=== PATIENT | female | born 1940 | race Hispanic/Latino ===

== ENCOUNTER 2017-04-28 20:04 | Inpatient (IN) | payer MEDICARE ==
[~2017-04-28] VITALS: Ht 157.5 cm; Wt 78.3 kg
[2017-04-28] MEDS ORDERED: ESMOLOL HCL 2500 MG/NACL 250 ML IV ONE (23:36)
[2017-04-28 23:45] VITALS: BP 107/73
[2017-04-29] VITALS (23 sets, daily range): BP systolic 96–153; BP diastolic 35–88
[2017-04-29] MEDS ORDERED: ACETAMINOPHEN 325 MG TAB PO PRN ×2 (01:30)
[2017-04-29] MEDS ORDERED: ONDANSETRON HCL 4 MG/2 ML VIAL IV PRN (01:30)
[2017-04-29 03:47] LABS: BASOPHILS % (AUTO) 0.4 % (0.0-5.0); EOSINOPHILS % (AUTO) 0.7 % (0.0-8.0); HEMATOCRIT 35.4 % (36-48); LYMPHOCYTES % (AUTO) 22.9 % (21.0-51.0); MEAN CORPUSCULAR HEMOGLOBIN 30.1 pg (27.0-33.0); MEAN CORPUSCULAR HGB CONC 34.1 g/dL (32.0-36.0); MEAN CORPUSCULAR VOLUME 88.5 fL (79-99); MONOCYTES % (AUTO) 10.4 % (3.0-13.0); NEUTROPHILS % (AUTO) 65.6 % (40.0-77.0); PLATELET COUNT (AUTO) 200 K/uL (130-400); RED CELL DISTRIBUTION WIDTH 13.3 % (11.0-15.5); WHITE BLOOD COUNT (AUTO) 5.5 K/uL (4.8-10.8)
[2017-04-29 03:58] LABS: INR 1.05 (0.85-1.15); PARTIAL THROMBOPLASTIN TIME 32.2 SEC (26.3-35.5)
[2017-04-29] MEDS: SODIUM CHLORIDE 0.9% 1000ML 1,000 ML IV SCH ×3 (04:08→22:21)
[2017-04-29 04:09] LABS: ALBUMIN 2.7 g/dL (3.5-5.0); BILIRUBIN,TOTAL 0.4 mg/dL (0.2-1.0); CREATININE 0.8 mg/dL (0.5-1.5); MAGNESIUM 1.7 mg/dL (1.80-2.40); PHOSPHORUS 3.4 mg/dL (2.5-4.9); POTASSIUM 3.6 mmol/L (3.5-5.1); TOTAL PROTEIN, SERUM 5.5 g/dL (6.0-8.3)
[2017-04-29] MEDS: INSULIN HUMULIN R 100 UNIT/ML 3ML SQ SCH ×4 (06:50→20:29)
[2017-04-29] MEDS ORDERED: LOSA100T29 PO (08:31)
[2017-04-29] MEDS ORDERED: INSLAN SQ (08:31)
[2017-04-29] MEDS ORDERED: FLUT16H NASAL (08:31)
[2017-04-29] MEDS ORDERED: ASPI-555 PO (08:31)
[2017-04-29] MEDS ORDERED: PANT40TA25 PO (08:31)
[2017-04-29] MEDS ORDERED: DICL2100G TP (08:31)
[2017-04-29] MEDS ORDERED: TRAZ-144 PO (08:31)
[2017-04-29] MEDS ORDERED: CARV6.25 PO (08:31)
[2017-04-29] MEDS ORDERED: FURO20TA6 PO (08:31)
[2017-04-29] MEDS ORDERED: TRAM50TA4 PO (08:31)
[2017-04-29] MEDS ORDERED: ESCI10TA54 PO (08:34)
[2017-04-29] MEDS ORDERED: PANTOPRAZOLE 40 MG/VIAL IVP SCH (09:00)
[2017-04-29] MEDS: ESMOLOL HCL 2500 MG/NACL 250 ML IV PRN ×3 (09:27→22:25)
[2017-04-29] MEDS ORDERED: VERAPAMIL HCL 80 MG TABLET PO ONE (11:30)
[2017-04-29] MEDS: APIXABAN 5 MG TABLET PO SCH ×2 (11:43→20:29)
[2017-04-29] MEDS: PANTOPRAZOLE SODIUM 40 MG TABLET.DR PO SCH (11:43)
[2017-04-29] MEDS: ALPRAZOLAM 0.25 MG TABLET PO PRN ×2 (12:03→22:18)
[2017-04-29] MEDS ORDERED: VERAPAMIL HCL 80 MG TABLET PO SCH (14:00)
[2017-04-29] MEDS: MAGNESIUM 2GM PREMIX 50ML 50 ML IV PRN (14:51)
[2017-04-29] MEDS: VERAPAMIL HCL 80 MG TABLET PO SCH (22:20)
[2017-04-29] MEDS ORDERED: ESMOLOL HCL 2500 MG/NACL 250 ML IV ONE (22:42)
[2017-04-30] VITALS (21 sets, daily range): BP systolic 106–151; BP diastolic 38–86
[2017-04-30] MEDS: ESMOLOL HCL 2500 MG/NACL 250 ML IV PRN ×2 (04:02→10:44)
[2017-04-30] MEDS: VERAPAMIL HCL 80 MG TABLET PO SCH (06:23)
[2017-04-30] MEDS: INSULIN HUMULIN R 100 UNIT/ML 3ML SQ SCH ×4 (06:29→21:00)
[2017-04-30] MEDS: PANTOPRAZOLE SODIUM 40 MG TABLET.DR PO SCH (09:40)
[2017-04-30] MEDS: APIXABAN 5 MG TABLET PO SCH ×2 (09:40→20:17)
[2017-04-30] MEDS: SODIUM CHLORIDE 0.9% 1000ML 1,000 ML IV SCH (09:40)
[2017-04-30] MEDS ORDERED: PROPOFOL 1000 MG/100 ML 100 ML IV ONE (11:51)
[2017-04-30] MEDS ORDERED: FENTANYL CITRATE PF 50 MCG/1 ML 5ML AMP IV ONE (11:52)
[2017-04-30] MEDS ORDERED: MIDAZOLAM HCL 1 MG/ML 2ML VIAL ONE (11:52)
[2017-04-30] MEDS: PROPAFENONE HCL 150 MG TABLET PO SCH ×2 (13:09→20:17)
[2017-04-30] MEDS: METOPROLOL TARTRATE 25 MG TAB PO SCH ×2 (13:10→20:17)
[2017-04-30] MEDS ORDERED: LOPERAMIDE HCL 1 MG/5 ML UNIT DOSE CUP PO SCH (15:00)
[2017-04-30] MEDS ORDERED: BISMUTH SUBSALICYLATE 262 MG/15 ML ML PO SCH (15:30)
[2017-05-01] MEDS ORDERED: ALPRAZOLAM 0.5 MG TABLET ONE ×3 (00:55→20:37)
[2017-05-01 03:43] VITALS: BP 128/55
[2017-05-01] MEDS: PROPAFENONE HCL 150 MG TABLET PO SCH ×3 (04:04→20:35)
[2017-05-01] MEDS: INSULIN HUMULIN R 100 UNIT/ML 3ML SQ SCH ×4 (06:28→21:00)
[2017-05-01] MEDS ORDERED: APIX5TAB PO (06:36)
[2017-05-01] MEDS ORDERED: METO25 PO (06:36)
[2017-05-01] MEDS ORDERED: PANT40TA PO (06:36)
[2017-05-01] MEDS ORDERED: PROP150T28 PO (06:36)
[2017-05-01 06:54] LABS: BASOPHILS % (AUTO) 0.6 % (0.0-5.0); EOSINOPHILS % (AUTO) 1.2 % (0.0-8.0); HEMATOCRIT 33.7 % (36-48); LYMPHOCYTES % (AUTO) 20.1 % (21.0-51.0); MEAN CORPUSCULAR HEMOGLOBIN 29.8 pg (27.0-33.0); MEAN CORPUSCULAR HGB CONC 33.5 g/dL (32.0-36.0); MEAN CORPUSCULAR VOLUME 88.9 fL (79-99); MONOCYTES % (AUTO) 8.3 % (3.0-13.0); NEUTROPHILS % (AUTO) 69.8 % (40.0-77.0); PLATELET COUNT (AUTO) 196 K/uL (130-400); RED BLOOD CELL COUNT(AUTO) 3.79 MIL/uL (4.00-5.50); RED CELL DISTRIBUTION WIDTH 13.8 % (11.0-15.5); WHITE BLOOD COUNT (AUTO) 5.9 K/uL (4.8-10.8)
[2017-05-01 07:05] LABS: CREATININE 0.8 mg/dL (0.5-1.5); POTASSIUM 3.6 mmol/L (3.5-5.1)
[2017-05-01 07:09] VITALS: BP 171/78
[2017-05-01] MEDS: METOPROLOL TARTRATE 25 MG TAB PO SCH ×2 (07:41→20:35)
[2017-05-01] MEDS: PANTOPRAZOLE SODIUM 40 MG TABLET.DR PO SCH (07:41)
[2017-05-01] MEDS: APIXABAN 5 MG TABLET PO SCH ×2 (07:41→20:35)
[2017-05-01] MEDS ORDERED: POTASSIUM CHLORIDE 10% ELIXIR 20 MEQ/15 ML UDCUP PO PRN (08:15)
[2017-05-01] MEDS: POTASSIUM CHLORIDE 20 MEQ ERTAB PO PRN ×2 (10:18→11:51)
[2017-05-01 10:25] LABS: OCCULT BLOOD STOOL SINGLE ONLY POSITIVE (NEGATIVE)
[2017-05-01] MEDS: ALPRAZOLAM 0.25 MG TABLET PO PRN ×2 (10:28→16:02)
[2017-05-01 11:21] VITALS: BP 160/82
[2017-05-01] MEDS ORDERED: FUROSEMIDE 20 MG TABLET PO SCH (11:30)
[2017-05-01] MEDS: CITALOPRAM 20 MG TABLET PO SCH (11:50)
[2017-05-01] MEDS: LOSARTAN 100 MG TABLET PO SCH (11:50)
[2017-05-01] MEDS ORDERED: IPRATROPIUM 0.5 MG/2.5 ML INH IH PRN (13:45)
[2017-05-01 14:12] LABS: HEMATOCRIT 37.3 % (36-48)
[2017-05-01] MEDS: FUROSEMIDE 10 MG/ML 4ML VIAL IV SCH (14:23)
[2017-05-01] MEDS: IPRATROPIUM 0.5 MG/2.5 ML INH IH SCH ×2 (14:33→17:53)
[2017-05-01 16:13] VITALS: BP 123/59
[2017-05-01 18:00] LABS: ABG BASE EXCESS -2.7 mmol/L (-2.0-3.0); ABG HCO3 22.1 mmol/L (21.0-28.0); ABG OXYGEN SATURATION 97.9 % (95.0-99.0); ABG PCO2 39 mmHg (32-45)
[2017-05-01 18:07] LABS: HEMATOCRIT 39.2 % (36-48)
[2017-05-01 18:28] LABS: AMPHET/METH SCREEN,URINE NEGATIVE (NEGATIVE); BARBITURATE SCREEN, URINE NEGATIVE (NEGATIVE); BENZODIAZEPINES SCREEN,URINE POSITIVE (NEGATIVE); CANNABINOID SCREEN,URINE NEGATIVE (NEGATIVE); COCAINE SCREEN,URINE NEGATIVE (NEGATIVE); OPIATE SCREEN,URINE NEGATIVE (NEGATIVE); PHENCYCLIDINE SCREEN,URINE NEGATIVE (NEGATIVE)
[2017-05-01 18:28] LABS: CREATINE KINASE MB 9.9 ng/mL (0.5-3.6); TROPONIN I 0.51 ng/mL (0.00-0.06)
[2017-05-01] MEDS: NITROGLYCERIN 1GM/1 INCH PACKET TD SCH (18:37)
[2017-05-01 20:00] VITALS: BP 153/75
[2017-05-01] MEDS: DOXYCYCLINE 100MG+NS 250ML 250 ML IV SCH (20:38)
[2017-05-01] MEDS: TRAMADOL HCL 50 MG TABLET PO SCH (20:38)
[2017-05-01] MEDS: CEFEPIME HCL 2 GM VIAL IVP SCH (21:43)
[2017-05-01] MEDS ORDERED: CEFEPIME 2GM+NS 100ML 100 ML IV SCH (22:00)
[2017-05-01 23:35] VITALS: BP 102/62
[2017-05-02] VITALS (9 sets, daily range): BP systolic 94–139; BP diastolic 62–78
[2017-05-02] MEDS: IPRATROPIUM 0.5 MG/2.5 ML INH IH SCH ×5 (00:15→23:08)
[2017-05-02 01:34] LABS: BASOPHILS % (AUTO) 1.3 % (0.0-5.0); EOSINOPHILS % (AUTO) 0.2 % (0.0-8.0); HEMATOCRIT 37.8 % (36-48); LYMPHOCYTES % (AUTO) 7.5 % (21.0-51.0); MEAN CORPUSCULAR HEMOGLOBIN 30.1 pg (27.0-33.0); MEAN CORPUSCULAR HGB CONC 33.8 g/dL (32.0-36.0); MEAN CORPUSCULAR VOLUME 89.2 fL (79-99); MONOCYTES % (AUTO) 5.7 % (3.0-13.0); NEUTROPHILS % (AUTO) 85.3 % (40.0-77.0); PLATELET COUNT (AUTO) 233 K/uL (130-400); RED BLOOD CELL COUNT(AUTO) 4.23 MIL/uL (4.00-5.50); RED CELL DISTRIBUTION WIDTH 13.5 % (11.0-15.5); WHITE BLOOD COUNT (AUTO) 8.8 K/uL (4.8-10.8)
[2017-05-02] MEDS: FUROSEMIDE 10 MG/ML 4ML VIAL IV SCH ×3 (01:36→17:43)
[2017-05-02] MEDS: NITROGLYCERIN 1GM/1 INCH PACKET TD SCH ×3 (01:40→17:43)
[2017-05-02 01:49] LABS: MAGNESIUM 1.5 mg/dL (1.80-2.40)
[2017-05-02 01:58] LABS: CREATININE 0.9 mg/dL (0.5-1.5); POTASSIUM 3.9 mmol/L (3.5-5.1)
[2017-05-02 02:21] LABS: CREATINE KINASE MB 10.9 ng/mL (0.5-3.6)
[2017-05-02 02:22] LABS: TROPONIN I 1.56 ng/mL (0.00-0.06)
[2017-05-02] MEDS: MAGNESIUM 2GM PREMIX 50ML 50 ML IV PRN (03:06)
[2017-05-02] MEDS: INSULIN HUMULIN R 100 UNIT/ML 3ML SQ SCH ×4 (05:38→21:33)
[2017-05-02] MEDS: CEFEPIME HCL 2 GM VIAL IVP SCH ×3 (06:06→23:29)
[2017-05-02] MEDS: PROPAFENONE HCL 150 MG TABLET PO SCH ×3 (06:43→19:40)
[2017-05-02] MEDS: LOSARTAN 100 MG TABLET PO SCH ×2 (07:37→09:36)
[2017-05-02] MEDS: CITALOPRAM 20 MG TABLET PO SCH ×2 (07:37→09:36)
[2017-05-02] MEDS ORDERED: FUROSEMIDE 20 MG TABLET PO SCH (09:00)
[2017-05-02] MEDS: DOXYCYCLINE 100MG+NS 250ML 250 ML IV SCH ×2 (09:35→20:03)
[2017-05-02] MEDS: ASPIRIN 81MG TAB.CHEW PO SCH (09:36)
[2017-05-02] MEDS: PANTOPRAZOLE SODIUM 40 MG TABLET.DR PO SCH (09:36)
[2017-05-02] MEDS: TRAMADOL HCL 50 MG TABLET PO SCH ×2 (09:36→20:02)
[2017-05-02] MEDS: APIXABAN 5 MG TABLET PO SCH ×2 (09:36→20:01)
[2017-05-02] MEDS: METOPROLOL TARTRATE 25 MG TAB PO SCH ×2 (09:36→20:02)
[2017-05-02] MEDS: ALPRAZOLAM 0.25 MG TABLET PO PRN (09:48)
[2017-05-02 10:56] LABS: TROPONIN I 1.17 ng/mL (0.00-0.06)
[2017-05-02] MEDS ORDERED: METOPROLOL TARTRATE 1 MG/ML 5ML VIAL IV PRN (21:30)
[2017-05-02] MEDS ORDERED: METOPROLOL TARTRATE 1 MG/ML 5ML VIAL IV ONE (21:31)
[2017-05-03] VITALS (9 sets, daily range): BP systolic 99–134; BP diastolic 54–94
[2017-05-03] MEDS: NITROGLYCERIN 1GM/1 INCH PACKET TD SCH ×3 (02:58→16:58)
[2017-05-03] MEDS: PROPAFENONE HCL 150 MG TABLET PO SCH (04:10)
[2017-05-03 04:12] LABS: HEMATOCRIT 37.5 % (36-48); MEAN CORPUSCULAR HEMOGLOBIN 29.5 pg (27.0-33.0); MEAN CORPUSCULAR HGB CONC 33.5 g/dL (32.0-36.0); MEAN CORPUSCULAR VOLUME 88.2 fL (79-99); PLATELET COUNT (AUTO) 226 K/uL (130-400); RED BLOOD CELL COUNT(AUTO) 4.25 MIL/uL (4.00-5.50); RED CELL DISTRIBUTION WIDTH 13.9 % (11.0-15.5); WHITE BLOOD COUNT (AUTO) 7.3 K/uL (4.8-10.8)
[2017-05-03 04:29] LABS: POTASSIUM 3.1 mmol/L (3.5-5.1)
[2017-05-03] MEDS ORDERED: POTASSIUM CHLORIDE 10 MEQ/TAB.SA PO ONE ×3 (04:37→06:11)
[2017-05-03] MEDS: CEFEPIME HCL 2 GM VIAL IVP SCH ×3 (05:12→22:03)
[2017-05-03] MEDS: INSULIN HUMULIN R 100 UNIT/ML 3ML SQ SCH ×4 (05:35→21:00)
[2017-05-03] MEDS: IPRATROPIUM 0.5 MG/2.5 ML INH IH SCH ×3 (05:48→18:15)
[2017-05-03] MEDS: POTASSIUM CHLORIDE 20 MEQ ERTAB PO PRN ×2 (06:16→07:43)
[2017-05-03] MEDS: FUROSEMIDE 10 MG/ML 4ML VIAL IV SCH ×2 (07:42→16:57)
[2017-05-03] MEDS: LOSARTAN 100 MG TABLET PO SCH (07:43)
[2017-05-03] MEDS: PANTOPRAZOLE SODIUM 40 MG TABLET.DR PO SCH (07:43)
[2017-05-03] MEDS: CITALOPRAM 20 MG TABLET PO SCH (07:43)
[2017-05-03] MEDS: ASPIRIN 81MG TAB.CHEW PO SCH (07:43)
[2017-05-03] MEDS: APIXABAN 5 MG TABLET PO SCH ×2 (07:43→22:03)
[2017-05-03] MEDS: METOPROLOL TARTRATE 25 MG TAB PO SCH (07:43)
[2017-05-03] MEDS: DOXYCYCLINE 100MG+NS 250ML 250 ML IV SCH ×2 (07:44→22:03)
[2017-05-03] MEDS: TRAMADOL HCL 50 MG TABLET PO SCH ×2 (07:44→22:02)
[2017-05-03] MEDS: SOTALOL HCL 80 MG TABLET PO SCH (22:03)
[2017-05-03] MEDS: ALPRAZOLAM 0.25 MG TABLET PO PRN (22:12)
[2017-05-04] MEDS: NITROGLYCERIN 1GM/1 INCH PACKET TD SCH (02:13)
[2017-05-04 03:13] VITALS: BP 117/76
[2017-05-04] MEDS: CEFEPIME HCL 2 GM VIAL IVP SCH ×3 (05:30→20:10)
[2017-05-04] MEDS: INSULIN HUMULIN R 100 UNIT/ML 3ML SQ SCH ×4 (05:34→21:00)
[2017-05-04] MEDS: IPRATROPIUM 0.5 MG/2.5 ML INH IH SCH ×5 (06:45→23:59)
[2017-05-04 07:00] VITALS: BP 125/72
[2017-05-04] MEDS ORDERED: FUROSEMIDE 40 MG TABLET PO SCH (09:00)
[2017-05-04] MEDS: CITALOPRAM 20 MG TABLET PO SCH (09:20)
[2017-05-04] MEDS: PANTOPRAZOLE SODIUM 40 MG TABLET.DR PO SCH (09:20)
[2017-05-04] MEDS: APIXABAN 5 MG TABLET PO SCH ×2 (09:20→20:11)
[2017-05-04] MEDS: TRAMADOL HCL 50 MG TABLET PO SCH ×2 (09:20→20:12)
[2017-05-04] MEDS: LOSARTAN 100 MG TABLET PO SCH (09:20)
[2017-05-04] MEDS: DOXYCYCLINE 100MG+NS 250ML 250 ML IV SCH ×2 (09:21→20:10)
[2017-05-04] MEDS: SOTALOL HCL 80 MG TABLET PO SCH (09:21)
[2017-05-04] MEDS: ASPIRIN 81MG TAB.CHEW PO SCH (09:21)
[2017-05-04 11:00] VITALS: BP 150/76
[2017-05-04] MEDS ORDERED: NITROGLYCERIN 1GM/1 INCH PACKET TD SCH (14:00)
[2017-05-04 14:50] LABS: CREATINE KINASE MB 1.5 ng/mL (0.5-3.6); TROPONIN I 0.18 ng/mL (0.00-0.06)
[2017-05-04 16:28] VITALS: BP 114/70
[2017-05-04] MEDS ORDERED: COMPOUND IV REFRIGERATED 1 EACH IVSOLN MISC PRN (16:45)
[2017-05-04] MEDS: FUROSEMIDE 10 MG/ML 4ML VIAL IV SCH (16:58)
[2017-05-04] MEDS ORDERED: MAGNESIUM 2GM PREMIX 50ML 50 ML IV SCH (17:15)
[2017-05-04 19:28] VITALS: BP 114/74
[2017-05-04] MEDS: ALPRAZOLAM 0.25 MG TABLET PO PRN (20:25)
[2017-05-04] MEDS ORDERED: AMIODARONE HCL 150 MG in DEXTROSE 5%-WATER 100 ML IV SCH (21:00)
[2017-05-04] MEDS ORDERED: SOTALOL HCL 80 MG TABLET PO SCH ×2 (21:00)
[2017-05-04] MEDS ORDERED: AMIODARONE HCL 900 MG in DEXTROSE 5%-WATER 500 ML IV SCH (21:00)
[2017-05-04 23:16] VITALS: BP 130/60
[2017-05-05] VITALS (14 sets, daily range): BP systolic 121–157; BP diastolic 56–82
[2017-05-05 04:38] LABS: BASOPHILS % (AUTO) 0.5 % (0.0-5.0); EOSINOPHILS % (AUTO) 1.2 % (0.0-8.0); HEMATOCRIT 41.4 % (36-48); LYMPHOCYTES % (AUTO) 15.9 % (21.0-51.0); MEAN CORPUSCULAR HEMOGLOBIN 29.9 pg (27.0-33.0); MEAN CORPUSCULAR HGB CONC 33.8 g/dL (32.0-36.0); MEAN CORPUSCULAR VOLUME 88.5 fL (79-99); MONOCYTES % (AUTO) 8.5 % (3.0-13.0); NEUTROPHILS % (AUTO) 73.9 % (40.0-77.0); PLATELET COUNT (AUTO) 258 K/uL (130-400); RED BLOOD CELL COUNT(AUTO) 4.68 MIL/uL (4.00-5.50); RED CELL DISTRIBUTION WIDTH 13.6 % (11.0-15.5); WHITE BLOOD COUNT (AUTO) 9.7 K/uL (4.8-10.8)
[2017-05-05 04:39] LABS: INR 1.05 (0.85-1.15); PARTIAL THROMBOPLASTIN TIME 28.7 SEC (26.3-35.5)
[2017-05-05 05:03] LABS: MAGNESIUM 1.5 mg/dL (1.80-2.40); POTASSIUM 3.2 mmol/L (3.5-5.1)
[2017-05-05 05:08] LABS: B-TYPE NATRIURETIC PEPTIDE 1200 pg/mL (0-100)
[2017-05-05] MEDS: FUROSEMIDE 10 MG/ML 4ML VIAL IV SCH ×2 (05:35→17:00)
[2017-05-05] MEDS: CEFEPIME HCL 2 GM VIAL IVP SCH ×3 (05:35→22:21)
[2017-05-05] MEDS: INSULIN HUMULIN R 100 UNIT/ML 3ML SQ SCH ×4 (05:52→21:00)
[2017-05-05] MEDS: IPRATROPIUM 0.5 MG/2.5 ML INH IH SCH ×4 (06:11→23:54)
[2017-05-05] MEDS: ASPIRIN 81MG TAB.CHEW PO SCH (09:00)
[2017-05-05] MEDS: LOSARTAN 100 MG TABLET PO SCH (09:00)
[2017-05-05] MEDS: PANTOPRAZOLE SODIUM 40 MG TABLET.DR PO SCH (09:00)
[2017-05-05] MEDS: APIXABAN 5 MG TABLET PO SCH ×2 (09:00→23:32)
[2017-05-05] MEDS: CITALOPRAM 20 MG TABLET PO SCH (09:00)
[2017-05-05] MEDS: TRAMADOL HCL 50 MG TABLET PO SCH ×2 (09:00→23:42)
[2017-05-05] MEDS: DOXYCYCLINE 100MG+NS 250ML 250 ML IV SCH ×2 (09:00→22:21)
[2017-05-05] MEDS: MAGNESIUM 2GM PREMIX 50ML 50 ML IV PRN (15:24)
[2017-05-05] MEDS ORDERED: POTASSIUM CHLORIDE 20MEQ/100ML 100 ML IV PRN (15:30)
[2017-05-05] MEDS ORDERED: LIDOCAINE HCL-MPF 1% 2ML VIAL IVP PRN (15:30)
[2017-05-05] MEDS ORDERED: BIVALIRUDIN 250 MG/VIAL IV ONE (16:35)
[2017-05-05] MEDS ORDERED: HEPARIN SODIUM 1000UNIT/ML 10ML VIAL ONE (16:35)
[2017-05-05] MEDS ORDERED: IOPAMIDOL-370 100 ML VIAL IV ONE (16:35)
[2017-05-05] MEDS ORDERED: ISOVUE-370 50ML VIAL IV ONE (16:35)
[2017-05-05] MEDS ORDERED: LIDOCAINE HCL 2% 20ML ONE (16:35)
[2017-05-05] MEDS ORDERED: NITROGLYCERIN 5 MG/ML 10 ML VIAL IV ONE (16:35)
[2017-05-05] MEDS ORDERED: MAGNESIUM 2GM PREMIX 50ML 50 ML IV SCH (17:45)
[2017-05-05] MEDS ORDERED: SODIUM CHLORIDE 0.9% 1000ML 1,000 ML IV SCH (17:50)
[2017-05-05] MEDS ORDERED: GLUCAGON 1MG KIT 1 MG ML IM PRN (18:00)
[2017-05-05] MEDS ORDERED: DEXTROSE 50%-WATER 50 ML DISP.SYRIN IV PRN (18:00)
[2017-05-05] MEDS ORDERED: POTASSIUM CHLORIDE 10 MEQ/TAB.SA PO ONE ×2 (21:38→23:38)
[2017-05-05] MEDS: ALPRAZOLAM 0.25 MG TABLET PO PRN (23:42)
[2017-05-06] MEDS ORDERED: POTASSIUM CHLORIDE 10 MEQ/TAB.SA PO ONE ×2 (00:31)
[2017-05-06 03:40] VITALS: BP 140/65
[2017-05-06 04:25] LABS: HEMATOCRIT 33.8 % (36-48); MEAN CORPUSCULAR HEMOGLOBIN 31.6 pg (27.0-33.0); MEAN CORPUSCULAR HGB CONC 35.8 g/dL (32.0-36.0); MEAN CORPUSCULAR VOLUME 88.1 fL (79-99); PLATELET COUNT (AUTO) 207 K/uL (130-400); RED BLOOD CELL COUNT(AUTO) 3.83 MIL/uL (4.00-5.50); RED CELL DISTRIBUTION WIDTH 13.8 % (11.0-15.5); WHITE BLOOD COUNT (AUTO) 8.5 K/uL (4.8-10.8)
[2017-05-06 04:33] LABS: INR 1.03 (0.85-1.15); PARTIAL THROMBOPLASTIN TIME 28.9 SEC (26.3-35.5); PROTHROMBIN TIME 10.8 SEC (9.6-11.6)
[2017-05-06 04:36] LABS: CREATININE 0.7 mg/dL (0.5-1.5); PHOSPHORUS 3.3 mg/dL (2.5-4.9); POTASSIUM 3.9 mmol/L (3.5-5.1)
[2017-05-06] MEDS: FUROSEMIDE 10 MG/ML 4ML VIAL IV SCH ×2 (05:52→16:08)
[2017-05-06] MEDS: CEFEPIME HCL 2 GM VIAL IVP SCH ×2 (05:52→16:08)
[2017-05-06] MEDS: IPRATROPIUM 0.5 MG/2.5 ML INH IH SCH (06:14)
[2017-05-06] MEDS: INSULIN HUMULIN R 100 UNIT/ML 3ML SQ SCH ×3 (06:29→16:30)
[2017-05-06 07:00] VITALS: BP 130/59
[2017-05-06] MEDS: PANTOPRAZOLE SODIUM 40 MG TABLET.DR PO SCH (09:45)
[2017-05-06] MEDS: APIXABAN 5 MG TABLET PO SCH ×2 (09:45→19:33)
[2017-05-06] MEDS: ASPIRIN 81MG TAB.CHEW PO SCH (09:46)
[2017-05-06] MEDS: LOSARTAN 100 MG TABLET PO SCH (09:46)
[2017-05-06] MEDS: TRAMADOL HCL 50 MG TABLET PO SCH (09:46)
[2017-05-06] MEDS: CITALOPRAM 20 MG TABLET PO SCH (09:46)
[2017-05-06] MEDS: DOXYCYCLINE 100MG+NS 250ML 250 ML IV SCH (09:46)
[2017-05-06 11:00] VITALS: BP 127/58
[2017-05-06 16:00] VITALS: BP 132/76
[2017-05-06] MEDS ORDERED: AMIO200T2 PO (18:37)
[2017-05-06] MEDS ORDERED: AMIODARONE HCL 200 MG TABLET PO ONE (19:50)
[2017-07-18] MEDS ORDERED: AMIO200T2 PO (19:50)
== END 2017-05-06 20:23 | disposition home or self-care (01) | DRG 871 ==
LOC: 2BH 23:05 → 2CH 04-29 17:35 → 2DH 05-02 06:36
PROVIDERS: ADMIT Family Medicine; ATTEND Family Medicine
PROC: 4A023N8 Measurement of Cardiac Sampling and Pressure, Bilateral, Percutaneous Approach (ICD-10-PCS; 2017-04-28)
PROC: B2111ZZ Fluoroscopy of Multiple Coronary Arteries using Low Osmolar Contrast (ICD-10-PCS; 2017-04-28)
PROC: B2151ZZ Fluoroscopy of Left Heart using Low Osmolar Contrast (ICD-10-PCS; 2017-04-28)
PROC: 5A2204Z Restoration of Cardiac Rhythm, Single (ICD-10-PCS; principal; 2017-05-05)
DX: A41.9 Sepsis, unspecified organism (principal); J18.9 Pneumonia, unspecified organism; J96.01 Acute respiratory failure with hypoxia; I50.23 Acute on chronic systolic (congestive) heart failure; G61.0 Guillain-Barre syndrome; E11.22 Type 2 diabetes mellitus with diabetic chronic kidney disease; I48.0 Paroxysmal atrial fibrillation; I27.20 Pulmonary hypertension, unspecified; I13.0 Hypertensive heart and chronic kidney disease with heart failure and stage 1 through stage 4 chronic kidney disease, or unspecified chronic kidney disease; I48.1 Persistent atrial fibrillation; I48.2 Chronic atrial fibrillation; N39.0 Urinary tract infection, site not specified; E66.9 Obesity, unspecified; E78.5 Hyperlipidemia, unspecified; I25.10 Atherosclerotic heart disease of native coronary artery without angina pectoris; I25.5 Ischemic cardiomyopathy; I34.0 Nonrheumatic mitral (valve) insufficiency; K21.9 Gastro-esophageal reflux disease without esophagitis; M19.90 Unspecified osteoarthritis, unspecified site; N18.3 Chronic kidney disease, stage 3 (moderate); Z68.31 Body mass index [BMI] 31.0-31.9, adult; Z88.0 Allergy status to penicillin; Z90.710 Acquired absence of both cervix and uterus; Z90.49 Acquired absence of other specified parts of digestive tract; Z83.3 Family history of diabetes mellitus; Z82.49 Family history of ischemic heart disease and other diseases of the circulatory system
CPT/HCPCS: 36415; 36600; 71045; 71250; 80048; 80053; 80305; 82270; 82550; 82553; 82803; 82948; 83605; 83735; 83874; 83880; 84100; 84484; 85025; 85027; 85378; 85610; 85730; 87324; 87507; 92960; 93005; 93306; 93312; 93460; 94640; 94664; A4218; C1760; C1894; C9113; J0282; J0583; J0692; J1644; J1815; J1940; J2250; J2704; J3010; J3475; J3490; J7030; J7060; Q9967

== ENCOUNTER 2017-05-23 09:41 | Inpatient (IN) | payer MEDICARE ==
[~2017-05-23] VITALS: Ht 154.9 cm; Wt 70.9 kg
[~2017-05-23 09:41] MED LIST: AMIO200T2 PO; APIX5TAB PO; ASPI-555 PO; DICL2100G TP; ESCI10TA54 PO; FLUT16H NASAL; INSLAN SQ; METO25 PO; PANT40TA PO; PANT40TA25 PO; TRAM50TA4 PO; TRAZ-144 PO
[2017-05-23] MEDS ORDERED: IPRATROPIUM/ALBUTEROL SULFATE 3 ML SOLUTION IH ONE (10:25)
[2017-05-23] MEDS ORDERED: NITROGLYCERIN 1GM/1 INCH PACKET TD ONE (10:30)
[2017-05-23] MEDS ORDERED: FUROSEMIDE 10 MG/ML 4ML VIAL ONE (10:30)
[2017-05-23 10:54] LABS: BASOPHILS % (AUTO) 0.6 % (0.0-5.0); EOSINOPHILS % (AUTO) 0.4 % (0.0-8.0); HEMATOCRIT 40.9 % (36-48); LYMPHOCYTES % (AUTO) 8.2 % (21.0-51.0); MEAN CORPUSCULAR HGB CONC 33.3 g/dL (32.0-36.0); MEAN CORPUSCULAR VOLUME 89.9 fL (79-99); MONOCYTES % (AUTO) 5.2 % (3.0-13.0); NEUTROPHILS % (AUTO) 85.6 % (40.0-77.0); PLATELET COUNT (AUTO) 297 K/uL (130-400); RED BLOOD CELL COUNT(AUTO) 4.55 MIL/uL (4.00-5.50); RED CELL DISTRIBUTION WIDTH 14.5 % (11.0-15.5); WHITE BLOOD COUNT (AUTO) 9.2 K/uL (4.8-10.8)
[2017-05-23 11:35] LABS: B-TYPE NATRIURETIC PEPTIDE 381 pg/mL (0-100)
[2017-05-23] MEDS ORDERED: NITROGLYCERIN 50 MG/D5% WATER 1 BOT ONE (12:05)
[2017-05-23 12:09] LABS: BILIRUBIN,TOTAL 0.5 mg/dL (0.2-1.0); CREATINE KINASE MB 5.7 ng/mL (0.5-3.6); POTASSIUM 4.3 mmol/L (3.5-5.1); TOTAL PROTEIN, SERUM 8.4 g/dL (6.0-8.3)
[2017-05-23 12:20] LABS: INR 1.15 (0.85-1.15); PARTIAL THROMBOPLASTIN TIME 38.5 SEC (26.3-35.5)
[2017-05-23] MEDS ORDERED: HYDRALAZINE HCL 20 MG/ML VIAL IV PRN (14:45)
[2017-05-23 15:07] VITALS: BP 136/97
[2017-05-23] MEDS: INSULIN HUMULIN R 100 UNIT/ML 3ML SQ SCH ×2 (15:46→20:43)
[2017-05-23 16:00] VITALS: BP 154/93
[2017-05-23 18:55] VITALS: BP 119/83
[2017-05-23] MEDS ORDERED: ACETAMINOPHEN 325 MG TAB ONE (20:09)
[2017-05-23] MEDS ORDERED: ACETAMINOPHEN 325 MG TAB PO PRN (20:15)
[2017-05-23] MEDS ORDERED: METOPROLOL TARTRATE 25 MG TAB ONE (20:16)
[2017-05-23] MEDS: FUROSEMIDE 10 MG/ML 4ML VIAL IV SCH (20:20)
[2017-05-23] MEDS ORDERED: METOPROLOL TARTRATE 25 MG TAB PO SCH ×2 (21:00→22:00)
[2017-05-23] MEDS: METOPROLOL TARTRATE 25 MG TAB PO SCH (21:48)
[2017-05-23 23:08] VITALS: BP 135/82
[2017-05-24 03:22] VITALS: BP 114/78
[2017-05-24 04:38] LABS: HEMATOCRIT 40.8 % (36-48); MEAN CORPUSCULAR HEMOGLOBIN 29.6 pg (27.0-33.0); MEAN CORPUSCULAR HGB CONC 33.6 g/dL (32.0-36.0); MEAN CORPUSCULAR VOLUME 88.1 fL (79-99); PLATELET COUNT (AUTO) 257 K/uL (130-400); RED BLOOD CELL COUNT(AUTO) 4.63 MIL/uL (4.00-5.50); RED CELL DISTRIBUTION WIDTH 13.9 % (11.0-15.5); WHITE BLOOD COUNT (AUTO) 5.5 K/uL (4.8-10.8)
[2017-05-24 04:57] LABS: POTASSIUM 3.4 mmol/L (3.5-5.1)
[2017-05-24] MEDS: METOPROLOL TARTRATE 25 MG TAB PO SCH (05:06)
[2017-05-24] MEDS: INSULIN HUMULIN R 100 UNIT/ML 3ML SQ SCH ×2 (05:45→11:30)
[2017-05-24 06:50] VITALS: BP 120/82
[2017-05-24] MEDS ORDERED: TRAMADOL HCL 50 MG TABLET PO SCH (09:00)
[2017-05-24] MEDS: FUROSEMIDE 10 MG/ML 4ML VIAL IV SCH (09:38)
[2017-05-24] MEDS ORDERED: RIVA15TA PO (10:58)
[2017-05-24] MEDS ORDERED: METO50TA18 PO (10:59)
[2017-05-24 11:00] VITALS: BP 130/65
[2017-05-24] MEDS ORDERED: POTASSIUM CHLORIDE 20 MEQ ERTAB PO SCH (11:00)
[2017-05-24] MEDS ORDERED: POTA20TA12 PO (11:03)
[2017-05-24] MEDS ORDERED: FURO20TA6 PO (11:03)
[2017-07-18] MEDS ORDERED: AMIO200T2 PO (19:50)
== END 2017-05-24 14:15 | disposition home or self-care (01) | DRG 308 ==
LOC: EDH 09:41 → EDHIP 12:29 → 2DH 14:52
PROVIDERS: ADMIT Internal Medicine Nephrology; ATTEND Internal Medicine Nephrology
DX: I48.0 Paroxysmal atrial fibrillation (principal); I50.33 Acute on chronic diastolic (congestive) heart failure; I11.0 Hypertensive heart disease with heart failure; E11.9 Type 2 diabetes mellitus without complications; E78.5 Hyperlipidemia, unspecified; M19.90 Unspecified osteoarthritis, unspecified site; Z88.0 Allergy status to penicillin; Z79.4 Long term (current) use of insulin; Z90.710 Acquired absence of both cervix and uterus; Z83.3 Family history of diabetes mellitus; Z82.49 Family history of ischemic heart disease and other diseases of the circulatory system; Z82.0 Family history of epilepsy and other diseases of the nervous system
CPT/HCPCS: 36415; 71045; 80048; 80053; 82550; 82553; 82948; 83880; 84484; 85025; 85027; 85610; 85730; 93005; 94660; J1940; J3490

== ENCOUNTER 2017-07-18 09:52 | Inpatient (IN) | payer MEDICARE ==
[~2017-07-18] VITALS: Ht 152.4 cm; Wt 67.5 kg
[~2017-07-18 09:52] MED LIST changes: -AMIO200T2 PO; +AMIO200T5 PO; -APIX5TAB PO; -ASPI-555 PO; +FURO20TA6 PO; -METO25 PO; +METO50TA18 PO; +POTA20TA12 PO; +RIVA15TA PO; -TRAZ-144 PO; +TRAZ-185 PO
[2017-07-18] MEDS ORDERED: METOPROLOL TARTRATE 1 MG/ML 5ML VIAL IV ONE ×3 (10:19→10:37)
[2017-07-18 10:23] LABS: BASOPHILS % (AUTO) 0.6 % (0.0-5.0); EOSINOPHILS % (AUTO) 0.1 % (0.0-8.0); LYMPHOCYTES % (AUTO) 9.3 % (21.0-51.0); MEAN CORPUSCULAR HEMOGLOBIN 29.4 pg (27.0-33.0); MEAN CORPUSCULAR HGB CONC 33.8 g/dL (32.0-36.0); MEAN CORPUSCULAR VOLUME 87.1 fL (79-99); PLATELET COUNT (AUTO) 268 K/uL (130-400); RED BLOOD CELL COUNT(AUTO) 4.83 MIL/uL (4.00-5.50); RED CELL DISTRIBUTION WIDTH 14.6 % (11.0-15.5); WHITE BLOOD COUNT (AUTO) 7.3 K/uL (4.8-10.8)
[2017-07-18 10:54] LABS: INR 1.13 (0.85-1.15); PARTIAL THROMBOPLASTIN TIME 34.2 SEC (26.3-35.5); PROTHROMBIN TIME 11.8 SEC (9.6-11.6)
[2017-07-18] MEDS ORDERED: AMIODARONE HCL 50 MG/ML 3 ML VIAL ONE (10:56)
[2017-07-18 11:14] LABS: B-TYPE NATRIURETIC PEPTIDE 719 pg/mL (0-100)
[2017-07-18 11:19] LABS: CREATININE 1.1 mg/dL (0.5-1.5); POTASSIUM 3.7 mmol/L (3.5-5.1)
[2017-07-18 11:33] LABS: ALBUMIN 3.7 g/dL (3.5-5.0); BILIRUBIN,TOTAL 0.7 mg/dL (0.2-1.0); CREATINE KINASE MB 1.8 ng/mL (0.5-3.6); TOTAL PROTEIN, SERUM 7.6 g/dL (6.0-8.3)
[2017-07-18] MEDS ORDERED: METOPROLOL TARTRATE 1 MG/ML 5ML VIAL IV PRN (15:15)
[2017-07-18] MEDS ORDERED: ALPR-409 PO (19:50)
[2017-07-18] MEDS ORDERED: FURO20TA4 PO (19:50)
[2017-07-18] MEDS ORDERED: AMIO200T5 PO (19:50)
[2017-07-18 20:52] VITALS: BP 114/81
[2017-07-19] VITALS (7 sets, daily range): BP systolic 120–140; BP diastolic 66–91
[2017-07-19] MEDS ORDERED: ALPRAZOLAM 0.25 MG TABLET PO SCH (00:45)
[2017-07-19] MEDS ORDERED: ALPRAZOLAM 0.25 MG TABLET PO PRN (00:49)
[2017-07-19] MEDS ORDERED: METOPROLOL TARTRATE 1 MG/ML 5ML VIAL IV ONE (00:50)
[2017-07-19] MEDS ORDERED: AMIODARONE HCL 150 MG in DEXTROSE 5%-WATER 100 ML IV SCH (05:00)
[2017-07-19] MEDS ORDERED: AMIODARONE HCL 50 MG/ML 3 ML VIAL ONE (05:02)
[2017-07-19] MEDS ORDERED: DEXTROSE 5%-WATER 50 ML IV ONE (05:03)
[2017-07-19] MEDS ORDERED: ONDANSETRON HCL MDV 20ML 2 MG/ML VIAL IV PRN (05:30)
[2017-07-19] MEDS ORDERED: AMIODARONE HCL 900 MG in DEXTROSE 5%-WATER 500 ML IV SCH (05:30)
[2017-07-19] MEDS ORDERED: HYDRALAZINE HCL 20 MG/ML VIAL IV PRN (05:30)
[2017-07-19] MEDS ORDERED: ACETAMINOPHEN 325 MG TAB ONE (06:10)
[2017-07-19] MEDS: ACETAMINOPHEN 325 MG TAB PO PRN (06:11)
[2017-07-19] MEDS ORDERED: AMIODARONE HCL 200 MG TABLET PO SCH (09:00)
[2017-07-19] MEDS: DICLOFENAC SODIUM PO SCH ×3 (09:00→21:00)
[2017-07-19] MEDS ORDERED: FUROSEMIDE 20 MG TABLET PO SCH (09:00)
[2017-07-19] MEDS: TRAMADOL HCL 50 MG TABLET PO SCH ×2 (09:00→21:00)
[2017-07-19] MEDS: APPL PO SCH ×3 (09:00→21:00)
[2017-07-19] MEDS ORDERED: FLUTICASONE PROPIONATE 50MCG/SPRAY 16 GM BOTTLE NS SCH (09:00)
[2017-07-19] MEDS: PANTOPRAZOLE SODIUM 40 MG TABLET.DR PO SCH (09:32)
[2017-07-19] MEDS: POTASSIUM CHLORIDE 20 MEQ ERTAB PO SCH (09:33)
[2017-07-19] MEDS: CITALOPRAM 20 MG TABLET PO SCH (09:33)
[2017-07-19] MEDS: INSULIN GLARGINE 100 UNITS/ML 10 ML VIAL SQ SCH (09:42)
[2017-07-19 10:46] LABS: CREATININE 1.2 mg/dL (0.5-1.5)
[2017-07-19] MEDS: FUROSEMIDE 10 MG/ML 2ML VIAL IV SCH ×2 (11:06→22:53)
[2017-07-19] MEDS ORDERED: VANCOMYCIN 1GM+NS 250ML 250 ML IV SCH (12:45)
[2017-07-19] MEDS ORDERED: RIVAROXABAN 15 MG TABLET PO SCH (17:00)
[2017-07-20 03:58] VITALS: BP 120/69
[2017-07-20 04:10] LABS: HEMATOCRIT 39.4 % (36-48); MEAN CORPUSCULAR HEMOGLOBIN 29.2 pg (27.0-33.0); MEAN CORPUSCULAR HGB CONC 33.7 g/dL (32.0-36.0); MEAN CORPUSCULAR VOLUME 86.6 fL (79-99); PLATELET COUNT (AUTO) 244 K/uL (130-400); RED BLOOD CELL COUNT(AUTO) 4.55 MIL/uL (4.00-5.50); RED CELL DISTRIBUTION WIDTH 14.2 % (11.0-15.5); WHITE BLOOD COUNT (AUTO) 8.1 K/uL (4.8-10.8)
[2017-07-20 04:18] LABS: CREATININE 1.1 mg/dL (0.5-1.5); POTASSIUM 3.8 mmol/L (3.5-5.1)
[2017-07-20 04:19] LABS: BAND NEUTROPHILS % (MANUAL) 4 % (0-2); LYMPHOCYTES % (MANUAL) 18 % (22-44); MAN.DIFF COMMENT-IMPRESSION MANUAL DIFFERENTIAL; MONOCYTES % (MANUAL) 4 % (2-9); PLATELET MORPHOLOGY COMMENT ADEQUATE; SEGMENTED NEUTROPHILS % 74 % (40-70)
[2017-07-20 05:22] LABS: B-TYPE NATRIURETIC PEPTIDE 862 pg/mL (0-100)
[2017-07-20 07:00] VITALS: BP 109/58
[2017-07-20] MEDS: CITALOPRAM 20 MG TABLET PO SCH (08:56)
[2017-07-20] MEDS: PANTOPRAZOLE SODIUM 40 MG TABLET.DR PO SCH (08:56)
[2017-07-20] MEDS: POTASSIUM CHLORIDE 20 MEQ ERTAB PO SCH (08:56)
[2017-07-20] MEDS: FUROSEMIDE 40 MG TABLET PO SCH (08:57)
[2017-07-20] MEDS: APPL PO SCH ×3 (08:58→21:00)
[2017-07-20] MEDS: DICLOFENAC SODIUM PO SCH ×3 (08:58→21:00)
[2017-07-20] MEDS: TRAMADOL HCL 50 MG TABLET PO SCH ×2 (08:58→21:00)
[2017-07-20] MEDS: FLUTICASONE PROPIONATE 50MCG/SPRAY 16 GM BOTTLE NS SCH ×2 (09:00→21:00)
[2017-07-20] MEDS: INSULIN GLARGINE 100 UNITS/ML 10 ML VIAL SQ SCH (09:02)
[2017-07-20 10:27] LABS: CREATININE 1.3 mg/dL (0.5-1.5); POTASSIUM 3.9 mmol/L (3.5-5.1)
[2017-07-20 11:00] VITALS: BP 120/82
[2017-07-20] MEDS: ACETAMINOPHEN 325 MG TAB PO PRN ×2 (12:35→18:05)
[2017-07-20 16:00] VITALS: BP 157/66
[2017-07-20 19:54] VITALS: BP 109/77
[2017-07-20 23:22] VITALS: BP 104/73
[2017-07-21] VITALS (11 sets, daily range): BP systolic 104–138; BP diastolic 46–78
[2017-07-21 04:22] LABS: CREATININE 1.1 mg/dL (0.5-1.5); POTASSIUM 3.8 mmol/L (3.5-5.1)
[2017-07-21] MEDS ORDERED: LORAZEPAM 2 MG/ML 1 ML VIAL IVP ONE (05:30)
[2017-07-21] MEDS ORDERED: LORAZEPAM 2 MG/ML 1 ML VIAL ONE (05:36)
[2017-07-21] MEDS ORDERED: VANCOMYCIN 1GM+NS 250ML 250 ML IV SCH (06:45)
[2017-07-21] MEDS: CITALOPRAM 20 MG TABLET PO SCH (07:39)
[2017-07-21] MEDS: APPL PO SCH ×3 (07:39→20:05)
[2017-07-21] MEDS: POTASSIUM CHLORIDE 20 MEQ ERTAB PO SCH (07:39)
[2017-07-21] MEDS: DICLOFENAC SODIUM PO SCH ×3 (07:39→20:05)
[2017-07-21] MEDS: INSULIN GLARGINE 100 UNITS/ML 10 ML VIAL SQ SCH (07:39)
[2017-07-21] MEDS: TRAMADOL HCL 50 MG TABLET PO SCH ×2 (07:40→20:05)
[2017-07-21] MEDS: FUROSEMIDE 40 MG TABLET PO SCH (07:40)
[2017-07-21] MEDS: PANTOPRAZOLE SODIUM 40 MG TABLET.DR PO SCH (07:40)
[2017-07-21] MEDS: FLUTICASONE PROPIONATE 50MCG/SPRAY 16 GM BOTTLE NS SCH ×2 (08:02→20:06)
[2017-07-21] MEDS ORDERED: BUPIVACAINE/PF 0.25% 30ML VIAL IJ ONE (09:39)
[2017-07-21] MEDS ORDERED: MIDAZOLAM HCL 1 MG/ML 2ML VIAL ONE ×3 (09:39→14:17)
[2017-07-21] MEDS ORDERED: MEPERIDINE-PF 25 MG/ML SYG ONE ×3 (09:39→14:17)
[2017-07-21] MEDS ORDERED: VANCOMYCIN 1GM+NS 250ML 250 ML IV ONE (09:40)
[2017-07-21] MEDS ORDERED: LIDOCAINE HCL 1% MDV 50ML VIAL ONE (09:40)
[2017-07-21] MEDS ORDERED: ISOVUE-300 100 ML VIAL IV ONE (10:01)
[2017-07-21] MEDS ORDERED: THROMBIN-JMI 5000 UNIT/VIAL TP ONE (14:22)
[2017-07-21] MEDS ORDERED: LIDOCAINE HCL 2% 20ML ONE (14:35)
[2017-07-21] MEDS ORDERED: ACETAMINOPHEN 325 MG TAB PO PRN (16:30)
[2017-07-21] MEDS ORDERED: ACETAMINOPHEN-CODEINE 300/30MG TAB PO PRN ×2 (16:30)
[2017-07-22 03:55] LABS: BASOPHILS % (AUTO) 0.7 % (0.0-5.0); EOSINOPHILS % (AUTO) 0.3 % (0.0-8.0); HEMATOCRIT 34.1 % (36-48); LYMPHOCYTES % (AUTO) 13.8 % (21.0-51.0); MEAN CORPUSCULAR HEMOGLOBIN 30.3 pg (27.0-33.0); MEAN CORPUSCULAR HGB CONC 34.6 g/dL (32.0-36.0); MEAN CORPUSCULAR VOLUME 87.7 fL (79-99); MONOCYTES % (AUTO) 13.1 % (3.0-13.0); NEUTROPHILS % (AUTO) 72.1 % (40.0-77.0); PLATELET COUNT (AUTO) 185 K/uL (130-400); RED BLOOD CELL COUNT(AUTO) 3.89 MIL/uL (4.00-5.50); RED CELL DISTRIBUTION WIDTH 14.6 % (11.0-15.5); WHITE BLOOD COUNT (AUTO) 6.2 K/uL (4.8-10.8)
[2017-07-22 04:02] VITALS: BP 138/54
[2017-07-22 04:05] LABS: CREATININE 0.9 mg/dL (0.5-1.5); POTASSIUM 3.6 mmol/L (3.5-5.1)
[2017-07-22 04:22] LABS: B-TYPE NATRIURETIC PEPTIDE 659 pg/mL (0-100)
[2017-07-22 07:15] VITALS: BP 125/63
[2017-07-22] MEDS: INSULIN GLARGINE 100 UNITS/ML 10 ML VIAL SQ SCH (07:20)
[2017-07-22] MEDS: CITALOPRAM 20 MG TABLET PO SCH (07:20)
[2017-07-22] MEDS: FUROSEMIDE 40 MG TABLET PO SCH (07:20)
[2017-07-22] MEDS: POTASSIUM CHLORIDE 20 MEQ ERTAB PO SCH (07:20)
[2017-07-22] MEDS: PANTOPRAZOLE SODIUM 40 MG TABLET.DR PO SCH (07:21)
[2017-07-22] MEDS: APPL PO SCH (07:21)
[2017-07-22] MEDS: FLUTICASONE PROPIONATE 50MCG/SPRAY 16 GM BOTTLE NS SCH (07:21)
[2017-07-22] MEDS: TRAMADOL HCL 50 MG TABLET PO SCH (07:21)
[2017-07-22] MEDS: DICLOFENAC SODIUM PO SCH (07:21)
[2017-07-22] MEDS ORDERED: AMIODARONE HCL 200 MG TABLET PO SCH (09:00)
[2017-07-22] MEDS ORDERED: RIVAROXABAN 20 MG TABLET PO SCH (09:00)
[2017-07-22 11:05] VITALS: BP 113/64
== END 2017-07-22 14:15 | disposition home or self-care (01) | DRG 226 ==
LOC: EDH 09:52 → EDHIP 14:50 → 4CH 07-19 07:54 → 2DH 07-19 16:25
PROVIDERS: ADMIT Family Medicine; ATTEND Family Medicine
PROC: 0JH609Z Insertion of Cardiac Resynchronization Defibrillator Pulse Generator into Chest Subcutaneous Tissue and Fascia, Open Approach (ICD-10-PCS; principal; 2017-07-21)
PROC: 02HL3KZ Insertion of Defibrillator Lead into Left Ventricle, Percutaneous Approach (ICD-10-PCS; 2017-07-21)
PROC: 02HK3KZ Insertion of Defibrillator Lead into Right Ventricle, Percutaneous Approach (ICD-10-PCS; 2017-07-21)
DX: I48.0 Paroxysmal atrial fibrillation (principal); I50.33 Acute on chronic diastolic (congestive) heart failure; I49.5 Sick sinus syndrome; E11.9 Type 2 diabetes mellitus without complications; I08.0 Rheumatic disorders of both mitral and aortic valves; I11.0 Hypertensive heart disease with heart failure; M19.90 Unspecified osteoarthritis, unspecified site; E78.5 Hyperlipidemia, unspecified; I44.7 Left bundle-branch block, unspecified; Z79.01 Long term (current) use of anticoagulants; Z88.8 Allergy status to other drugs, medicaments and biological substances; Z95.810 Presence of automatic (implantable) cardiac defibrillator; Z90.710 Acquired absence of both cervix and uterus; Z88.0 Allergy status to penicillin; Z83.3 Family history of diabetes mellitus; Z82.49 Family history of ischemic heart disease and other diseases of the circulatory system; Z82.0 Family history of epilepsy and other diseases of the nervous system
CPT/HCPCS: 33225; 33249; 36415; 71045; 80048; 80053; 82550; 82553; 82948; 83735; 83880; 84484; 85025; 85610; 85730; 93005; 93308; 93650; 99156; 99157; 99291; C1732; C1769; C1894; J0282; J1644; J1940; J2060; J2175; J2250; J3370; J3490; J7060; Q9967

== ENCOUNTER 2024-07-13 05:36 | Day surgery (SDC) | payer OTHER ==
[2024-07-11 11:13] LABS: BASOPHILS # (AUTO) 0.03 K/uL (0.00-0.20); BASOPHILS % (AUTO) 0.7 % (0.0-5.0); EOSINOPHILS # (AUTO) 0.07 K/uL (0.00-0.70); EOSINOPHILS % (AUTO) 1.5 % (0.0-8.0); HEMATOCRIT 39.5 % (36-48); IMMATURE GRANULOCYTE ABSOLUTE 0.01 K/uL (0-1); LYMPHOCYTES % (AUTO) 21.4 % (21.0-51.0); MEAN CORPUSCULAR HEMOGLOBIN 30.4 pg (27.0-33.0); MEAN CORPUSCULAR HGB CONC 32.9 g/dL (32.0-36.0); MEAN CORPUSCULAR VOLUME 92.3 fL (79-99); MONOCYTES # (AUTO) 0.4 K/uL (0.1-1.0); MONOCYTES % (AUTO) 9.2 % (3.0-13.0); NEUTROPHILS # (AUTO) 3.1 K/uL (1.8-7.7); PLATELET COUNT (AUTO) 151 K/uL (130-400); RED BLOOD CELL COUNT(AUTO) 4.28 MIL/uL (4.00-5.50); RED CELL DISTRIBUTION WIDTH 13.1 % (11.0-15.5); WHITE BLOOD COUNT (AUTO) 4.6 K/uL (4.8-10.8)
[2024-07-11 11:19] LABS: CREATININE 0.9 mg/dL (0.5-1.0)
[2024-07-11 11:54] LABS: INR 0.97 (0.85-1.15); PROTHROMBIN TIME 10.3 SEC (9.6-11.6)
[2024-07-11 11:59] VITALS: BP 201/84; PULSE 69; RESP 18; TEMP 97.9
--- NOTE | 2024-07-11 12:02 | EKG ---
[facility] Test Date: 2024-07-11 Test Time: 11:04:31 Pat Name: MICHELLE SOLITARIO Department: [facility] Room: Gender: F Insole Filler: [id number] : 1940 Requested By: RAYMON DELGADILLO Order Number: [id number] Reading MD: Haily Baker Measurements Intervals [place] Rate: 70 P: 0 SD: 163 QRS: -85 QRSD: 158 T: 65 QT: 453 QTc: 489 Interpretive Statements Ventricular-paced rhythm Compared to ECG 07/22/2017 04:56:35 No significant changes Electronically Signed On 07-12-2024 09:19:04 CDT by Haily Baker Please click the below link to view image of tracing.
--- NOTE | 2024-07-11 13:30 | NUR ---
verified informed dr chase pt stoped xarelto on 07/08. ok to proceed
[2024-07-13] VITALS (7 sets, daily range): BP systolic 135–207; BP diastolic 55–65; PULSE 70–75; RESP 14–16; TEMP 97.3–97.7
[~2024-07-13] VITALS: Ht 152.4 cm; Wt 77.8 kg
[~2024-07-13 05:36] MED LIST changes: -AMIO200T5 PO; +CHOL2000 PO; +ERYT1OIN7 OP; -ESCI10TA54 PO; +FURO20TA4 PO; -FURO20TA6 PO; -INSLAN SQ; +LIDO700A30 TP; +LORA10TA7 PO; -METO50TA18 PO; +OPTIVE OU; -PANT40TA PO; -PANT40TA25 PO; +PANT40TA54 PO; -POTA20TA12 PO; +PRAV40TA3 PO; -RIVA15TA PO; +RIVA20TA PO; +SACU1TAB PO; +SITA50TA PO; -TRAZ-185 PO
[2024-07-13] MEDS ORDERED: SODIUM BICARB 50MEQ 50ML VIAL 50 ML ONE (07:08)
[2024-07-13] MEDS ORDERED: LIDOCAINE HCL 1% MDV 50ML VIAL ONE (07:08)
[2024-07-13] MEDS ORDERED: BUPIvacaine/PF 0.25% 30ML VIAL IJ ONE (07:09)
[2024-07-13] MEDS ORDERED: ceFAZolin SODIUM 1 GM VIAL ONE (07:09)
[2024-07-13] MEDS ORDERED: VANCOMYCIN 1G/250ML KIT 500 ML IV ONE (07:33)
[2024-07-13] MEDS ORDERED: MIDAZOLAM HCL 1 MG/ML 2ML VIAL ONE ×2 (08:00→08:16)
[2024-07-13] MEDS ORDERED: FENTanyl CITRate PF 50 MCG/1 ML 2ML VIAL ONE (08:00)
[2024-07-13] MEDS ORDERED: BACITRACIN 1 EACH PACKET TP ONE (08:40)
[2024-07-13] MEDS ORDERED: acetaMINOPHEN WITH coDEINE 1 TAB TAB PO PRN (09:00)
[2024-07-13] MEDS ORDERED: acetaMINOPHEN 500 MG TABLET PO PRN (09:00)
--- NOTE | 2024-07-13 09:20 | NUR ---
PT ARRIVED CAOX 4 VSS NAD LEFT CHEST ASYMPTOMATIC PRESSURE DRESSING INTACT
--- NOTE | 2024-07-13 10:55 | NUR ---
DRESSING CHANGES DEMONSTRATED TO FAMILY INSTRUCTIONS GIVEN TO BOTH PT AND FAMILY. NAD VSS LEFT CHEST ASYMPTOMATIC
== END 2024-07-13 11:10 | disposition home or self-care (01) ==
LOC: DAH 05:36
PROVIDERS: ATTEND Internal Medicine Cardiovascular Disease
DX: Z45.02 Encounter for adjustment and management of automatic implantable cardiac defibrillator (principal); I44.2 Atrioventricular block, complete; I48.21 Permanent atrial fibrillation; I11.0 Hypertensive heart disease with heart failure; I50.22 Chronic systolic (congestive) heart failure; E11.9 Type 2 diabetes mellitus without complications; M19.90 Unspecified osteoarthritis, unspecified site; I42.9 Cardiomyopathy, unspecified; Z95.810 Presence of automatic (implantable) cardiac defibrillator; Z88.0 Allergy status to penicillin; Z88.6 Allergy status to analgesic agent; Z79.899 Other long term (current) drug therapy; Z98.890 Other specified postprocedural states
CPT/HCPCS: 80048; 85025; 85610; 85730; 36415; 93005; 33264; 82948; A4223 ×3; C1882; J3010; J0665; J3490 ×2; J2250 ×2; J3370; A4215; A6251; A4222; A4221; A4663; A4216; A6258; A4606; 99156; 99157; J0690